=== PATIENT | male | born 1965 | race Caucasian/White ===

== ENCOUNTER 2021-08-21 14:28 | Inpatient (IN) | payer OTHER ==
[2021-08-21 15:29] VITALS: BMI 31.6
[2021-08-21] MEDS ORDERED: ONDANSETRON *ODT* 4 MG TABLET SL PRN (15:33)
[2021-08-21] MEDS ORDERED: MAG HYDROX/AL HYDROX/SIMETH 30 ML UNIT-DOSE CUP PO PRN (15:33)
[2021-08-21] MEDS ORDERED: MAGNESIUM CITRATE 300 ML BOTTLE PO PRN (15:33)
[2021-08-21] MEDS ORDERED: chlordiazePOXIDE HCL 25 MG CAPSULE PO PRN (15:33)
[2021-08-21] MEDS ORDERED: BISMUTH SUBSALICYLATE 524 MG/30 ML PO PRN (15:33)
[2021-08-21] MEDS ORDERED: LOPERAMIDE HCL 2 MG CAPSULE PO PRN (15:33)
[2021-08-21] MEDS ORDERED: ACETAMINOPHEN 325 MG TABLET (FP) PO PRN (15:33)
[2021-08-21] MEDS ORDERED: MENTHOL/PHENOL 1 EACH UD MM PRN (15:33)
[2021-08-21] MEDS ORDERED: MAGNESIUM HYDROX 2400MG/30ML ORAL SUSPENSION 30 ML CUP PO PRN (15:33)
[2021-08-21] MEDS ORDERED: chlordiazePOXIDE HCL 25 MG CAPSULE ONE (17:18)
[2021-08-21] MEDS ORDERED: hydrOXYzine PAMOATE 25 MG CAPSULE (FP) PO ONE (17:18)
[2021-08-21] MEDS: chlordiazePOXIDE HCL 25 MG CAPSULE PO SCH ×2 (17:22→22:29)
[2021-08-21] MEDS: hydrOXYzine PAMOATE 25 MG CAPSULE (FP) PO PRN (17:22)
[2021-08-21] MEDS: LISINOPRIL 10 MG TABLET PO SCH (18:44)
[2021-08-21] MEDS: amLODIPine BESYLATE 10 MG TABLET (FP) PO SCH (18:44)
[2021-08-21] MEDS: metFORMIN HCL 500 MG TABLET (FP) PO SCH (22:28)
[2021-08-21] MEDS: MELATONIN 5 MG TABLETS PO SCH (22:28)
[2021-08-21] MEDS: THIAMINE HCL 100 MG TABLET (FP) PO SCH (22:28)
[2021-08-21] MEDS: TOLNAFTATE 1% CREAM 15 GM TUBE TP SCH (22:30)
[2021-08-22] MEDS: chlordiazePOXIDE HCL 25 MG CAPSULE PO SCH ×4 (05:26→23:08)
[2021-08-22] MEDS ORDERED: metFORMIN HCL 500 MG TABLET (FP) PO SCH (07:00)
[2021-08-22] MEDS: metFORMIN HCL 500 MG TABLET (FP) PO SCH ×2 (08:03→23:07)
[2021-08-22] MEDS: PRENATAL VITAMINS W/ FOLIC ACID TABLET (FP) PO SCH (10:50)
[2021-08-22] MEDS: amLODIPine BESYLATE 10 MG TABLET (FP) PO SCH (10:50)
[2021-08-22] MEDS: LISINOPRIL 10 MG TABLET PO SCH (10:50)
[2021-08-22] MEDS: TOLNAFTATE 1% CREAM 15 GM TUBE TP SCH ×2 (10:51→23:09)
[2021-08-22] MEDS: IBUPROFEN 400 MG TABLET (FP) PO PRN ×2 (13:34→23:08)
[2021-08-22] MEDS ORDERED: predniSONE 10 MG TABLET (UD) PO ONE (15:00)
[2021-08-22] MEDS ORDERED: predniSONE 20 MG TABLET (UD) PO ONE (16:15)
[2021-08-22] MEDS: ACETAMINOPHEN 325 MG TABLET (FP) PO PRN (18:34)
[2021-08-22] MEDS: hydrOXYzine PAMOATE 25 MG CAPSULE (FP) PO PRN ×2 (18:37→23:07)
[2021-08-22] MEDS: THIAMINE HCL 100 MG TABLET (FP) PO SCH (23:07)
[2021-08-22] MEDS: MELATONIN 5 MG TABLETS PO SCH (23:07)
[2021-08-23] MEDS: chlordiazePOXIDE HCL 25 MG CAPSULE PO SCH ×4 (05:24→22:03)
[2021-08-23] MEDS: metFORMIN HCL 500 MG TABLET (FP) PO SCH ×2 (06:35→22:05)
[2021-08-23] MEDS ORDERED: predniSONE 20 MG TABLET (UD) PO ONE (10:00)
[2021-08-23] MEDS: amLODIPine BESYLATE 10 MG TABLET (FP) PO SCH (10:49)
[2021-08-23] MEDS: PRENATAL VITAMINS W/ FOLIC ACID TABLET (FP) PO SCH (10:49)
[2021-08-23] MEDS: LISINOPRIL 10 MG TABLET PO SCH (10:49)
[2021-08-23] MEDS: TOLNAFTATE 1% CREAM 15 GM TUBE TP SCH ×2 (10:50→22:04)
[2021-08-23] MEDS: METHOCARBAMOL 500 MG TABLET PO PRN ×2 (10:51→22:03)
[2021-08-23 16:37] LABS: HEMATOCRIT 35.1 % (35.4-49); HEMOGLOBIN 11.8 GM/dL (11.7-16.9); MCH 30.5 pg (25.7-33.7); MCHC 33.5 g/dl (32.0-35.9); MEAN CELL VOLUME 91.3 fl (80-96); MEAN PLT VOLUME 8.5 fl (7.5-11.1); PLATELET COUNT 47 10^3/uL (134-434); RBC 3.85 M/mm3 (4.00-5.60); RDW 19.5 % (11.9-15.9); WHITE BLOOD COUNT 4.4 K/mm3 (4.0-10.0)
[2021-08-23] MEDS: IBUPROFEN 400 MG TABLET (FP) PO PRN (16:42)
[2021-08-23 16:50] LABS: BLOOD UREA NITROGEN 16.3 mg/dL (7-18); CALCIUM 8.4 mg/dL (8.5-10.1)
[2021-08-23 16:51] LABS: ALBUMIN 3.4 g/dl (3.4-5.0)
[2021-08-23 16:54] LABS: CREATININE 1.3 mg/dL (0.55-1.3)
[2021-08-23 16:55] LABS: BILIRUBIN,TOTAL 1.4 mg/dL (0.2-1); TOT PROT 7.2 g/dl (6.4-8.2)
[2021-08-23] MEDS: MELATONIN 5 MG TABLETS PO SCH (22:03)
[2021-08-23] MEDS: THIAMINE HCL 100 MG TABLET (FP) PO SCH (22:03)
[2021-08-24] MEDS ORDERED: chlordiazePOXIDE HCL 10 MG CAPSULE PO PRN
[2021-08-24] MEDS: chlordiazePOXIDE HCL 10 MG CAPSULE PO SCH ×4 (05:25→22:09)
[2021-08-24] MEDS: METHOCARBAMOL 500 MG TABLET PO PRN ×3 (05:27→22:11)
[2021-08-24] MEDS: metFORMIN HCL 500 MG TABLET (FP) PO SCH ×2 (06:12→17:29)
[2021-08-24 08:10] LABS: SARS-CoV-2 NAA Not Detected (Not Detected)
[2021-08-24] MEDS: predniSONE 10 MG TABLET (UD) PO SCH (10:17)
[2021-08-24] MEDS: PRENATAL VITAMINS W/ FOLIC ACID TABLET (FP) PO SCH (10:17)
[2021-08-24] MEDS: amLODIPine BESYLATE 10 MG TABLET (FP) PO SCH (10:17)
[2021-08-24] MEDS: LISINOPRIL 10 MG TABLET PO SCH (10:18)
[2021-08-24] MEDS: IBUPROFEN 400 MG TABLET (FP) PO PRN ×2 (10:19→17:31)
[2021-08-24] MEDS: TOLNAFTATE 1% CREAM 15 GM TUBE TP SCH ×2 (10:20→22:11)
[2021-08-24] MEDS ORDERED: POTASSIUM CHLORIDE ORAL LIQUID 20 MEQ/15 ML PO ONE ×2 (11:00→15:00)
[2021-08-24] MEDS: THIAMINE HCL 100 MG TABLET (FP) PO SCH (22:09)
[2021-08-24] MEDS: MELATONIN 5 MG TABLETS PO SCH (22:10)
[2021-08-25] MEDS: metFORMIN HCL 500 MG TABLET (FP) PO SCH ×2 (06:24→18:52)
[2021-08-25] MEDS: chlordiazePOXIDE HCL 10 MG CAPSULE PO SCH ×2 (06:24→18:51)
[2021-08-25] MEDS: METHOCARBAMOL 500 MG TABLET PO PRN ×2 (06:25→22:02)
[2021-08-25] MEDS: IBUPROFEN 400 MG TABLET (FP) PO PRN ×3 (06:25→22:03)
[2021-08-25] MEDS: PRENATAL VITAMINS W/ FOLIC ACID TABLET (FP) PO SCH (10:50)
[2021-08-25] MEDS: LISINOPRIL 10 MG TABLET PO SCH (10:50)
[2021-08-25] MEDS: TOLNAFTATE 1% CREAM 15 GM TUBE TP SCH ×2 (10:50→22:04)
[2021-08-25] MEDS: predniSONE 10 MG TABLET (UD) PO SCH (10:50)
[2021-08-25] MEDS: amLODIPine BESYLATE 10 MG TABLET (FP) PO SCH (10:50)
[2021-08-25] MEDS: THIAMINE HCL 100 MG TABLET (FP) PO SCH (22:03)
[2021-08-25] MEDS: MELATONIN 5 MG TABLETS PO SCH (22:03)
[2021-08-26] MEDS ORDERED: chlordiazePOXIDE HCL 10 MG CAPSULE PO ONE (05:00)
[2021-08-26] MEDS: IBUPROFEN 400 MG TABLET (FP) PO PRN (05:37)
[2021-08-26] MEDS: metFORMIN HCL 500 MG TABLET (FP) PO SCH (07:06)
[2021-08-26 09:10] VITALS: BP 143/91; PULSE 101; TEMP 97.2
[2021-08-26] MEDS: LISINOPRIL 10 MG TABLET PO SCH (10:26)
[2021-08-26] MEDS: PRENATAL VITAMINS W/ FOLIC ACID TABLET (FP) PO SCH (10:26)
[2021-08-26] MEDS: amLODIPine BESYLATE 10 MG TABLET (FP) PO SCH (10:26)
[2021-08-26] MEDS: TOLNAFTATE 1% CREAM 15 GM TUBE TP SCH (10:28)
[2021-08-26] MEDS: ACETAMINOPHEN 325 MG TABLET (FP) PO PRN (10:28)
[2021-08-26] MEDS: predniSONE 10 MG TABLET (UD) PO SCH (10:29)
== END 2021-08-26 10:32 | disposition home or self-care (01) | DRG 897 ==
LOC: YASAS 14:28 → Y6N 17:43
PROVIDERS: ADMIT Allergy & Immunology; ATTEND Allergy & Immunology
PROC: HZ2ZZZZ Detoxification Services for Substance Abuse Treatment (ICD-10-PCS; principal; 2021-08-21)
DX: F10.230 Alcohol dependence with withdrawal, uncomplicated (principal); F10.282 Alcohol dependence with alcohol-induced sleep disorder; F10.24 Alcohol dependence with alcohol-induced mood disorder; F19.24 Other psychoactive substance dependence with psychoactive substance-induced mood disorder; I10 Essential (primary) hypertension; E78.00 Pure hypercholesterolemia, unspecified; E11.9 Type 2 diabetes mellitus without complications; Z79.84 Long term (current) use of oral hypoglycemic drugs; M21.612 Bunion of left foot; M51.26 Other intervertebral disc displacement, lumbar region; Z96.641 Presence of right artificial hip joint; Z87.891 Personal history of nicotine dependence
CPT/HCPCS: 36415; 80053; 82962; 84132; 85027; 86780; 87811; 93005; 93010; C9803; U0003; U0005